=== PATIENT | male | born 1970 | race Caucasian/White ===

== ENCOUNTER 2025-08-30 09:46 | Day surgery (SDC) | payer BC ==
[~2025-08-30 09:46] MED LIST: EPINEPHrine 1 MG/ML SDV ONE; Sodium Chloride 0.9% 10 ML Syringe FLUSH PRN; Sodium Chloride 0.9% 10 ML Syringe FLUSH SCH
[2025-08-30] MEDS: Lactated Ringers 1,000 ML IV SCH (10:05)
[2025-08-30] MEDS ORDERED: Midazolam 1 MG/ML 2 ML SDV ONE (10:12)
[2025-08-30] MEDS ORDERED: propofoL 500 MG/50 ML 50 ML ONE (10:12)
[2025-08-30] MEDS ORDERED: fentaNYL 250 MCG/5 ML SDV ONE (10:12)
[2025-08-30] MEDS ORDERED: dexmedeTOMIDine HCl 200 MCG/2 ML SDV ONE (10:18)
[2025-08-30] MEDS ORDERED: Succinylcholine 200 MG/10 ML MDV ONE (10:45)
[2025-08-30] MEDS ORDERED: droPERidol 2.5 MG/ML SDV ONE (10:49)
[2025-08-30] MEDS: Scopalamine 1mg/3day Transdermal Patch TOP ONE (15:19)
== END 2025-08-30 13:40 | disposition home or self-care (01) ==
LOC: JD.SDS 09:46
PROVIDERS: ATTEND Orthopaedic Surgery
DX: Z53.8 Procedure and treatment not carried out for other reasons (principal)
CPT/HCPCS: A9270; J0330; J1790; J2003; J2250; J2704; J3010; J7120; J0169; J0665

== ENCOUNTER 2025-09-06 10:27 | Day surgery (SDC) | payer BC ==
[2025-09-06] MEDS ORDERED: Lactated Ringers 1,000 ML IV ONE (10:28)
[2025-09-06] MEDS: Lactated Ringers 1,000 ML IV SCH (10:50)
[2025-09-06] MEDS ORDERED: Ondansetron 4 MG/2 ML SDV ONE (10:58)
[2025-09-06] MEDS ORDERED: Ketorolac 30 MG/ML SDV ONE (10:58)
[2025-09-06] MEDS ORDERED: Propofol 200 MG/20 ML SDV ONE ×2 (10:58→11:00)
[2025-09-06] MEDS ORDERED: fentaNYL 100 MCG/2 ML SDV ONE (10:58)
[2025-09-06] MEDS ORDERED: Midazolam 1 MG/ML 2 ML SDV ONE (10:58)
[2025-09-06] MEDS ORDERED: Lidocaine 1% 4 ML ONE (10:59)
[2025-09-06] MEDS ORDERED: fentaNYL 100 MCG/2 ML SDV IVPUSH PRN (11:28)
[2025-09-06] MEDS ORDERED: Ondansetron 4 MG/2 ML SDV IVPUSH PRN (11:28)
[2025-09-06] MEDS ORDERED: Dexamethasone 4 MG/ML 5 ML MDV ONE (12:28)
[2025-09-06] MEDS ORDERED: dexmedeTOMIDine HCl 200 MCG/2 ML SDV ONE (12:28)
[2025-09-06] MEDS ORDERED: ePHEDrine 50 MG/ML SDV ONE (12:46)
[2025-09-06] MEDS: Acetaminophen/HYDROcodone 325-5 MG Tab PO PRN (15:00)
== END 2025-09-06 15:15 | disposition home or self-care (01) ==
LOC: JD.SDS 10:27
PROVIDERS: ATTEND Orthopaedic Surgery
DX: S83.242A Other tear of medial meniscus, current injury, left knee, initial encounter (principal); F17.200 Nicotine dependence, unspecified, uncomplicated; X58.XXXA Exposure to other specified factors, initial encounter
CPT/HCPCS: 29881; A9270; J0169; J0665; J0690; J1100; J1885; J2003; J2250; J2405; J2704; J3010; J7120; J3490